=== PATIENT | female | born 1980 | race Caucasian/White ===

== ENCOUNTER 2018-01-20 13:33 | Observation (INO) | payer OTHER ==
[2018-01-20] MEDS ORDERED: DESMOPRESSIN ACETATE 20 MCG in NS 50 ML IV ONE (13:49)
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
[2018-01-20 13:57] LABS: PLATELET COUNT 307 10^3/uL (150-400)
[2018-01-20 14:07] LABS: INR 0.96 (0.83-1.16)
[2018-01-20] MEDS ORDERED: ONDANSETRON 4 MG/2 ML VIAL IVP PRN (18:15)
[2018-01-20] MEDS ORDERED: ALBUTEROL 60 PUFFS/8 GM MDI IH PRN (18:17)
[2018-01-20] MEDS: ACETAMINOPHEN 325 MG TAB PO PRN (20:29)
[2018-01-20] MEDS: DIAZEPAM 5 MG TAB PO PRN (20:29)
--- NOTE | 2018-01-20 21:44 | TRAUMAPNT ---
Trauma Tertiary Progress Note Assessment/Plan: no new issues. head with light clearing. UE parasthesias resolved. tolerating po. HEENT unchanged. neck nontender. heart reg. lungs clear. abd nontender. neuro without focal deficit. BUE/BLE normal motor and sensory exam. cont supportive care. Objective: Vital Signs Temp Pulse Resp BP Pulse Ox 36.7 C 85 16 120/80 94 01/20/18 19:38 01/20/18 19:38 01/20/18 19:38 01/20/18 19:38 01/20/18 19:38 PT 13.0 SEC (12.0-15.0) 01/20/18 01:30 INR 0.96 (0.83-1.16) 01/20/18 01:30 - C-Spine Clearance Cervical Spine Cleared: Yes Provider who Cleared Cervical Spine: Palacios Time Cervical Spine was Cleared: 18:00
[2018-01-21] MEDS: DIAZEPAM 5 MG TAB PO PRN (04:30)
[2018-01-21] MEDS: ACETAMINOPHEN 325 MG TAB PO PRN (04:31)
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
[2018-01-21] MEDS ORDERED: ZOVIA PO SCH (09:00)
[2018-01-21] MEDS ORDERED: ACETAMINOPHEN 500 MG TAB PO SCH (16:15)
[2018-01-21 16:18] VITALS: BP 112/77
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
[2018-01-21] MEDS ORDERED: CYCLOBENZAPRINE 10 MG TAB PO PRN (16:44)
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
--- NOTE | 2018-01-21 16:52 | ASMTLACE ---
ALIYAE Length of stay for Answers: 2 days current admission Acuity / Level of Answers: No Care: Did the patient have an inpatient admission? Comorbidities - select Answers: Other Notes: Von willebrand's diseas e all that apply # of Emergency department Answers: 1-2 visits in the last 6 months Score: 4 Date Signed: 01/21/2018 04:51 PM Electronically Signed By:CARLOS Walker
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
== END 2018-01-21 21:06 | disposition home or self-care (01) ==
LOC: EDUNIT# → F3N 19:26
PROVIDERS: ADMIT Surgery; ATTEND Surgery
DX: S06.0X9A Concussion with loss of consciousness of unspecified duration, initial encounter (principal); S14.129A Central cord syndrome at unspecified level of cervical spinal cord, initial encounter; V43.62XA Car passenger injured in collision with other type car in traffic accident, initial encounter; Y92.414 Local residential or business street as the place of occurrence of the external cause; R20.2 Paresthesia of skin; D68.0 Von Willebrand disease; M62.830 Muscle spasm of back
CPT/HCPCS: 70450; 72070; 72100; 72125; 72141; 92523; 96365; 97161; 97166; 99285; G0378; J2597; L0172